=== PATIENT | female | born 1980 | race African-American/Black ===

== ENCOUNTER 2023-10-11 12:22 | Emergency (ER) | payer MEDICAID ==
[~2023-10-11] VITALS: Ht 172.7 cm; Wt 68.0 kg
[2023-10-11 12:24] VITALS: TEMP 98.6; O2SAT 98
[2023-10-11] MEDS ORDERED: MUPI22OI2 TP (15:11)
[2023-10-11] MEDS ORDERED: CEPH500T MT (15:11)
[2023-10-11] MEDS ORDERED: CEPHALEXIN 250MG CAPSULE PO ONE (15:15)
[2023-10-11] MEDS ORDERED: HYDROCODONE/ACETAMINOPHEN 5/325MG TABLET PO ONE (15:15)
[2023-10-11] MEDS ORDERED: HYDR-4001 MT (16:52)
[2023-10-11 16:53] VITALS: BP 141/88; PULSE 120; RESP 18
[2023-10-11] MEDS: HYDROCODONE/ACETAMINOPHEN 5/325MG TABLET PO NR (16:53)
[2023-10-11] MEDS: CEPHALEXIN 250MG CAPSULE PO NR (16:53)
[2023-10-11] MEDS ORDERED: MUPI1OIN4 TP (18:22)
== END 2023-10-11 18:00 | disposition home or self-care (01) ==
LOC: ER 12:22
DX: S70.211A Abrasion, right hip, initial encounter (principal); Y04.8XXA Assault by other bodily force, initial encounter; Y93.9 Activity, unspecified; Y92.410 Unspecified street and highway as the place of occurrence of the external cause; Y99.8 Other external cause status
CPT/HCPCS: 99283